=== PATIENT | male | born 1975 | race African-American/Black ===

== ENCOUNTER 2021-01-05 21:30 | Emergency (ER) | payer SELFPAY ==
[~2021-01-05] VITALS: Ht 172.7 cm; Wt 85.0 kg
[~2021-01-05 21:30] MED LIST: MOTRIN
[2021-01-05 22:14] VITALS: BP 186/92
[2021-01-06] MEDS ORDERED: METH-653 MT (03:00)
[2021-01-06] MEDS ORDERED: IBUP-2029 MT (03:00)
== END 2021-01-06 03:56 | disposition home or self-care (01) ==
LOC: ER 21:30
DX: M54.12 Radiculopathy, cervical region (principal); M25.512 Pain in left shoulder; J45.909 Unspecified asthma, uncomplicated; Z88.0 Allergy status to penicillin
CPT/HCPCS: 72040; 73030; 99284

== ENCOUNTER 2022-02-01 15:54 | Emergency (ER) | payer MEDICAID ==
[~2022-02-01] VITALS: Ht 172.7 cm; Wt 98.0 kg
[~2022-02-01 15:54] MED LIST changes: +IBUP-2029 MT; +METH-653 MT
[2022-02-01 16:00] VITALS: BP 142/94
[2022-02-01] MEDS ORDERED: ACET-2708 MT ×3 (17:59→18:00)
[2022-02-01] MEDS ORDERED: GUAI600T26 MT ×3 (17:59→18:00)
[2022-02-01] MEDS ORDERED: AZIT250T12 MT ×3 (17:59→18:00)
[2022-02-01] MEDS ORDERED: ACETAMINOPHEN 325MG TABLET PO ONE (18:00)
[2022-02-01] MEDS ORDERED: AZITHROMYCIN 500 MG TABLET PO ONE (18:00)
== END 2022-02-01 18:28 | disposition home or self-care (01) ==
LOC: ER 15:54
DX: H66.92 Otitis media, unspecified, left ear (principal); I10 Essential (primary) hypertension; J45.909 Unspecified asthma, uncomplicated; Z13.9 Encounter for screening, unspecified; Z88.0 Allergy status to penicillin
CPT/HCPCS: 99283